=== PATIENT | female | born 2000 | race Caucasian/White ===

== ENCOUNTER 2020-11-26 00:22 | Emergency (ER) | payer OTHER ==
[~2020-11-26] VITALS: Ht 167.6 cm; Wt 56.6 kg
--- NOTE | 2020-11-26 00:49 | EKG ---
[address] [address] Test Date: 2020-11-26 Test Time: 00:39:38 Pat Name: TIFFANY SCHROEDER Department: Room: Gender: F [employer]: : [id number] Requested By: JOEY LOVELL Order Number: [id number] Reading MD: Measurements Intervals [place] Rate: 73 P: 56 PA: 198 QRS: 58 QRSD: 66 T: 43 QT: 378 QTc: 420 Interpretive Statements SINUS RHYTHM QRS(T) CONTOUR ABNORMALITY CONSISTENT WITH ANTEROSEPTAL INFARCT AGE UNDETERMINED ABNORMAL ECG RI6.02 No previous ECG available for comparison
[2020-11-26 01:46] LABS: BILIRUBIN,URINE NEG (NEG); CLARITY,URINE CLEAR; COLOR,URINE YELLOW; GLUCOSE,URINE NEG (NEG); UROBILINOGEN,URINE 0.2 mg/dL (0.2 mg/dL)
[2020-11-26 01:47] LABS: BACTERIA,URINE 0 /HPF (0-FEW); NITRITE,URINE NEG (NEG); RBC,URINE 0 /HPF (0-2); SQUAMOUS EPITHELIAL CELL,UR FEW /LPF; WBC,URINE OCC /HPF (0-4)
[2020-11-26 01:53] LABS: BASO % 0 % (0-3); EOS # 0.2 x10^3/uL (0.0-0.7); EOS % 2 % (0-3); HEMATOCRIT 37.4 % (36.0-47.0); HEMOGLOBIN 12.9 g/dL (12.0-15.5); LYMPH # 1.4 x10^3/uL (1.0-4.8); LYMPH % 19 % (24-48); MEAN CORPUSCULAR HEMOGLOBIN 34 pg (25-35); MEAN CORPUSCULAR HGB CONC 35 g/dL (31-37); MEAN CORPUSCULAR VOLUME 97 fL (79-100); MONO # 0.7 x10^3/uL (0.0-1.1); MONO % 11 % (0-9); NEUT # 4.8 x10^3uL (1.8-7.7); NEUT % 68 % (31-73); PLATELET COUNT 183 x10^3/uL (140-400); RED BLOOD COUNT 3.84 x10^6/uL (3.50-5.40); RED CELL DISTRIBUTION WIDTH 12.3 % (11.5-14.5); WHITE BLOOD COUNT 7.1 x10^3/uL (4.0-11.0)
[2020-11-26 02:06] LABS: CALCIUM 8.5 mg/dL (8.5-10.1); CREATININE 0.7 mg/dL (0.6-1.0); GFR 104.6; POTASSIUM 3.7 mmol/L (3.5-5.1)
[2020-11-26 02:12] LABS: MAGNESIUM 2.2 mg/dL (1.8-2.4)
--- NOTE | 2020-11-26 02:17 | RAD ---
CT head without contrast: Reason for examination: Fell. Seizure. History of left occipital ablation and surgery. Helical images were obtained through the brain with no contrast administered. Exposure: One or more of the following individualized dose reduction techniques were utilized for thi s examination: 1. Automated exposure control 2. Adjustment of the mA and/or kV according to patient size 3. Use of iterative reconstruction technique. There is encephalomalacia involving the left parietal and occipital lobe. There is some compensatory enlargement of the occipital horn of the left lateral ventricular system. No other abnormalities are seen at the ventricles. No midline shift is seen. There is no evidence of intracranial hemorrhage, in farct or mass. Orbits show no abnormalities. The paranasal sinuses and mastoid air cells are clear. T here has been previous left parietal-occipital craniotomy. No acute skull abnormality is seen. IMPRESSION: Postop changes in the right parietal-occipital region with encephalomalacia involving the left brinell tester ior parietal and occipital lobes. No acute intracranial abnormality evident. Electronically signed by: Annie Munoz MD (11/26/2020 2:15 AM) NAEL
[2020-11-26] MEDS ORDERED: LIDOCAINE/EPI/TETRACAINE TOPICAL GEL 3 ML. TP ONE ×2 (02:36→02:45)
[2020-11-26] MEDS ORDERED: DIAZ10TA4 PO (02:57)
--- NOTE | 2020-11-26 02:59 | PHYS DOC ---
Past History Past Medical History: Seizure Past Surgical History: No Surgical History Alcohol Use: None Adult General Chief Complaint Chief Complaint: SEIZURE HPI HPI Patient is a 20-year-old female with a known seizure disorder since 6 years old and neurosurgical removal part of right parietal occipital region to control seizures in 2019 who presents with dad for chief complaint of seizure activity. States that she is currently on Onfi, and Depakote and was just weaned off of them methosuximide 2 days ago by their neurologist at [facility]. States she was in the shower earlier this evening and had a seizure that lasted about a minute. States she did hit the back of her head on the corner of the tub. States she had had a seizure in a couple of years. Denies any recent travel, illnesses, fevers, Covid/flu symptoms, chest pain, shortness of breath, abdominal pain, nausea, vomiting. Denies any alcohol or drug use. States she has been otherwise eating and drinking normally. States she has been making urine and stool normally for her. Denies any weight changes. States that she has been otherwise well except for her recent change in seizure medications. Dad states that he called their neurologist and was directed to the emergency department and advised to start on a benzodiazepine until able to see the neurologist as long as everything else was not concerning. Review of Systems Review of Systems Review of systems otherwise unremarkable except noted in HPI Current Medications Current Medications Current Medications Medications (Trade) Dose Ordered Sig/Natalio Start Time Stop Time Status Last Admin Dose Admin Lidocaine/ Epinephrine (Let (Obgs-Qodibgp-Idgtv) Gel) 3 ml STK-MED ONCE 11/26/20 02:36 11/26/20 02:37 DC Allergies Allergies Allergies Coded Allergies Type Severity Reaction Last Updated Verified No Known Drug Allergies 11/26/20 No Physical Exam Physical Exam Constitutional: Well developed, well nourished, no acute distress, non-toxic appearance. [] HENT: Has a 1 cm linear laceration on left parietal scalp, bleeding controlled with no signs of skull fracture,, bilateral external ears normal, oropharynx moist, no oral exudates, nose normal. [] Eyes: PERRLA, EOMI, conjunctiva normal, no discharge. [] Neck: Normal range of motion, no tenderness, supple, no stridor. [] Cardiovascular:Heart rate regular rhythm, no murmur [] Lungs & Thorax: Bilateral breath sounds clear to auscultation [] Abdomen: Bowel sounds normal, soft, no tenderness, no masses, no pulsatile masses. [] Skin: Warm, dry, no erythema, no rash. [] Back: No tenderness, no CVA tenderness. [] Extremities: No tenderness, no cyanosis, no clubbing, ROM intact, no edema. [] Neurologic: Alert and oriented to baseline per father, normal motor function, normal sensory function, able to sit, stand and walk no focal deficits noted. [] Psychologic: Affect normal, judgement normal, mood normal. [] Current Patient Data Vital Signs Vital Signs Date Time Temp Pulse Resp B/P (MAP) Pulse Ox O2 Delivery O2 Flow Rate FiO2 11/26/20 00:58 98.5 75 20 123/55 (77) 98 Room Air Lab Results Laboratory Tests Test 11/26/20 01:18 11/26/20 01:28 11/26/20 01:37 Urine Collection Type Unknown Urine Color Yellow Urine Clarity Clear Urine pH 6.5 Urine Specific [place] 1.025 Urine Protein 100 mg/dl (NEG-TRACE) Urine Glucose (UA) Neg mg/dL (NEG) Urine Ketones (Stick) Trace mg/dL (NEG) Urine Blood Neg (NEG) Urine Nitrite Neg (NEG) Urine Bilirubin Neg (NEG) Urine Urobilinogen Dipstick 0.2 mg/dL (0.2 mg/dL) Urine Leukocyte Esterase Neg (NEG) Urine RBC 0 /HPF (0-2) Urine WBC Occ /HPF (0-4) Urine Squamous Epithelial Cells Few /LPF Urine Bacteria 0 /HPF (0-FEW) POC Urine HCG, Qualitative hcg negative (Negative) White Blood Count 7.1 x10^3/uL (4.0-11.0) Red Blood Count 3.84 x10^6/uL (3.50-5.40) Hemoglobin 12.9 g/dL (12.0-15.5) Hematocrit 37.4 % (36.0-47.0) Mean Corpuscular Volume 97 fL (79-100) Mean Corpuscular Hemoglobin 34 pg (25-35) Mean Corpuscular Hemoglobin Concent 35 g/dL (31-37) Red Cell Distribution Width 12.3 % (11.5-14.5) Platelet Count 183 x10^3/uL (140-400) Neutrophils (%) (Auto) 68 % (31-73) Lymphocytes (%) (Auto) 19 % (24-48) L Monocytes (%) (Auto) 11 % (0-9) H Eosinophils (%) (Auto) 2 % (0-3) Basophils (%) (Auto) 0 % (0-3) Neutrophils # (Auto) 4.8 x10^3uL (1.8-7.7) Lymphocytes # (Auto) 1.4 x10^3/uL (1.0-4.8) Monocytes # (Auto) 0.7 x10^3/uL (0.0-1.1) Eosinophils # (Auto) 0.2 x10^3/uL (0.0-0.7) Basophils # (Auto) 0.0 x10^3/uL (0.0-0.2) Sodium Level 141 mmol/L (136-145) Potassium Level 3.7 mmol/L (3.5-5.1) Chloride Level 105 mmol/L (98-107) Carbon Dioxide Level 28 mmol/L (21-32) Anion Gap 8 (6-14) Blood Urea Nitrogen 13 mg/dL (7-20) Creatinine 0.7 mg/dL (0.6-1.0) Estimated GFR (Cockcroft-Gault) 104.6 Glucose Level 91 mg/dL (70-99) Lactic Acid Level 1.0 mmol/L (0.4-2.0) Calcium Level 8.5 mg/dL (8.5-10.1) Magnesium Level 2.2 mg/dL (1.8-2.4) Creatine Kinase 117 U/L (26-192) EKG EKG [] Radiology/Procedures Radiology/Procedures [] CT head without contrast: Reason for examination: Fell. Seizure. History of left occipital ablation and surgery. Helical images were obtained through the brain with no contrast administered. Exposure: One or more of the following individualized dose reduction techniques were utilized for this examination: 1. Automated exposure control 2. Adjustment of the mA and/or kV according to patient size 3. Use of iterative reconstruction technique. There is encephalomalacia involving the left parietal and occipital lobe. There is some compensatory enlargement of the occipital horn of the left lateral ventricular system. No other abnormalities are seen at the ventricles. No midline shift is seen. There is no evidence of intracranial hemorrhage, infarct or mass. Orbits show no abnormalities. The paranasal sinuses and mastoid air cells are clear. There has been previous left parietal-occipital craniotomy. No acute skull abnormality is seen. IMPRESSION: Postop changes in the right parietal-occipital region with encephalomalacia involving the left posterior parietal and occipital lobes. No acute intracranial abnormality evident. Electronically signed by: Annie Munoz MD (11/26/2020 2:15 AM) [facility] Patient has a 1 cm linear laceration on left parietal scalp. Bleeding controlled. Extensively cleaned with sterile water. L ET placed for topical anesthesia. 1 staple placed. Heart Score C/O Chest Pain: No Risk Factors: Risk Factors: DM, Current or recent (<one month) smoker, HTN, HLP, family history of CAD, obesity. Risk Scores: Risk Factors: DM, Current or recent (<one month) smoker, HTN, HLP, family history of CAD, obesity. Course & Med Decision Making Course & Med Decision Making Patient is a 20-year-old female with a past medical history significant for seizure disorder who presents with dad for seizure medications Vital signs not concerning. Blood sugar normal. Laboratory analysis normal. Urinalysis not concerning. negative. CT with no new acute findings. Patient alert and oriented to baseline in the emergency department. Discussed all findings with dad and patient. Advised restarting the methosuximide at the lower dose that she was weaned to which is 300 mg twice daily. Also given a dose of diazepam in the emergency department and sent home with a prescription of rescue p.o. and rectal diazepam. Dad stated that he already talked to the neurologist and will be talking to them again this morning and going over to [facility] for a follow-up visit and reevaluation of patient's medications. Gave dad strict return precautions to the emergency department. Family very grateful, verbalized understanding and agreed with plan of discharge. [] Dragon Disclaimer Dragon Disclaimer This electronic medical record was generated, in whole or in part, using a voice recognition dictation system. Departure Departure: Impression: Primary Impression: Seizure disorder Additional Impressions: Laceration of head Concussion Disposition: 01 HOME / SELF CARE / HOMELESS Condition: GOOD Referrals: PCP,UNKNOWN (PCP) Patient Instructions: Concussion and Brain Injury, Laceration Care, Adult, Seizure, Adult Additional Instructions: Thank you for coming into the emergency department tonight and allowing us to take care of your child. Please read all of the attached information very carefully. As discussed please begin taking the methosuximide again at the 300 mg twice daily dose starting here in the emergency department. Your daughter was also given a dose of diazepam to help control seizures until medicine becomes effective. You are sent home with both oral and rectal diazepam for rescue. Please use as directed for seizure activity. As discussed, please talk to your neurologist this morning at [facility] and set up a follow-up appointment as soon as possible, today if possible. Please come back to the emergency department immediately with new or concerning symptoms as discussed. Scripts Diazepam (DIAZEPAM) 10 Mg Tablet 10 MG PO BID for post seizure for 3 Days, #6 TAB Prov: JOEY LOVELL MD 11/26/20 Problem Qualifiers JOEY LOVELL MD Nov 26, 2020 02:59
[2020-11-26] MEDS ORDERED: diazePAM 5 MG TABLET. ONE (03:07)
[2020-11-26 03:13] VITALS: BP 110/68
[2020-11-26] MEDS ORDERED: DIPH,PERTUSS(ACELL),TET VAC/PF 0.5 ML SYRINGE. VAX IM ONE (03:15)
[2020-11-26] MEDS ORDERED: diazePAM 5 MG TABLET. PO ONE (03:15)
== END 2020-11-26 03:25 | disposition home or self-care (01) ==
LOC: ER 00:22
DX: S06.0X9A Concussion with loss of consciousness of unspecified duration, initial encounter (principal); S01.01XA Laceration without foreign body of scalp, initial encounter; G40.909 Epilepsy, unspecified, not intractable, without status epilepticus; W22.8XXA Striking against or struck by other objects, initial encounter; Y93.89 Activity, other specified; Y92.89 Other specified places as the place of occurrence of the external cause; Y99.8 Other external cause status
CPT/HCPCS: 12001; 36415; 70450; 80048; 81001; 81025; 82550; 83605; 83735; 85025; 90471; 90715; 93005; 99285